=== PATIENT | male | born 1975 | race Caucasian/White ===

== ENCOUNTER 2017-06-16 11:33 | Emergency (ER) | payer SELFPAY ==
[~2017-06-16] VITALS: Ht 167.6 cm; Wt 160.0 kg
[~2017-06-16 11:33] MED LIST: LISI10TA3 PO; TRAM50 PO; Z.0.NO CURRENT MEDS
[2017-06-16 11:41] VITALS: BP 179/111; PULSE 76; RESP 16; TEMP 98.5; O2SAT 97
--- NOTE | 2017-06-16 11:53 | PD ---
HPI Chief Complaint: Edema Time Seen by Provider: 11:42 Travel History International Travel<30 days: No Contact w/Intl Traveler<30days: No Traveled to known affect area: No History of Present Illness HPI Patient transferred from the [place] ER to rule out left lower extremity DVT. Patient states he had have an ultrasound at different ER week ago was found to be negative at that time. Patient states symptoms have not changed and he went to the ER again today for second opinion. Patient states edema of his left lower extremity is worse with sitting and improves with walking. Patient having achy pain to his left calf that is worse to palpation. Not touching it makes pain better. Patient reports subjective fevers. Denies any chest pain, shortness of breath, numbness or tingling, known injury, or radiation of pain. PFSH Past Medical History Diminished Hearing: No Hypertension: Yes Inguinal Hernia: Yes Past Surgical History Appendectomy: Yes Tonsillectomy: Yes Other Surgery: Yes (BILAT HANDS) Social History Alcohol Use: No Tobacco Use: Yes (E-CIG) Substance Use: Yes (marijuana) Allergies-Medications (Allergen,Severity, Reaction): Coded Allergies: penicillin G (Unverified Allergy, Severe, CHILDHOOD, DOESNT REMEMBER, ) Reported Meds & Prescriptions Reported Meds & Active Scripts Active Bactrim DS (Sulfamethoxazole-Trimethoprim) 800-160 Mg Tab 1 Tab PO BID Clindamycin (Clindamycin HCl) 150 Mg Cap 2 Cap PO Q6H 10 Days Reported Lisinopril 10 Mg Tab 10 Mg PO DAILY Review of Systems Except as stated in HPI: all other systems reviewed are Neg Physical Exam Narrative GENERAL: Well-developed, overly nourished, in no acute distress, and non-ill appearing. SKIN: Febrile, erythematous, and tender area cellulitis noted on the left lateral calf. There is no crepitus, induration, or fluctuation. HEAD: Atraumatic. Normocephalic. EYES: Pupils equal and round. EOMI. No scleral icterus. No injection or drainage. ENT: No nasal bleeding or discharge. Mucous membranes pink and moist. NECK: Trachea midline. Supple. No nuclear rigidity. CARDIOVASCULAR: Dorsal pulses 2+, intact, and equal bilaterally. Capillary refill less than 2 seconds. RESPIRATORY: No accessory muscle use. No respiratory distress. MUSCULOSKELETAL: No obvious deformities. No clubbing. No cyanosis. 1+ edema left lower extremity. Full range of motion. NEUROLOGICAL: Awake and alert. No obvious cranial nerve deficits. Motor grossly within normal limits. Normal speech. PSYCHIATRIC: Appropriate mood and affect; insight and judgment normal. Data Data Last Documented VS Vital Signs Date Time Temp Pulse Resp B/P (MAP) Pulse Ox O2 Delivery O2 Flow Rate FiO2 06/16/17 11:46 72 18 97 Room Air 06/16/17 11:41 98.5 179/111 (133) Orders Orders Us Leg Venous Doppler (06/16/17 11:46) Ed Discharge Order (06/16/17 12:31) [facility] Medical Decision Making Medical Screen Exam Complete: Yes Emergency Medical Condition: Yes Medical Record Reviewed: Yes Interpretation(s) Ultrasound left lower extremity read by the radiologist shows: 1. No evidence of deep venous thrombosis. 2. Multiple mildly prominent lymph nodes in the groin region. Differential Diagnosis Cellulitis, DVT, abscess, folliculitis, other Narrative Course The patient has cellulitis. There is no evidence of necrotizing fasciitis at this time. There is no evidence of abscess. There is no evidence of local joint space involvement. There is no evidence of deep venous thrombosis. The patient will be discharged on antibiotics. The patient was given signs and symptoms warnings for worsening infection, such as spreading of redness, increasing pain , and/or swelling, associated heat, or fever and instructed to return immediately if these signs or symptoms worsen. The patient is to follow up with physician in 2 days for recheck or return here in 2 days for recheck if unable to establish outpatient follow up. Sooner if worsens or as needed. The patient agrees with plan. The patient has a prior history of hypertension and states has been taking their antihypertensive medications, but reports remains not well controlled. The patient has no symptoms as well. The patient denied headache, changes in vision, nausea, vomiting, dizziness, weakness or loss of sensation. The patient denied and chest, back or abdominal pain. The patient also denied any shortness of breath, dyspnea on exertion, orthopnea or PND. The patients blood pressures at discharge were at an acceptable level. I discussed with the patient that the standard of care is to not adjust antihypertensive medications at this time and for them to follow up with a primary care physician for continued outpatient evaluation and potential adjustment of blood pressure medication at that time. Return warnings were given to the patient and the patient agreed with plan of care. Patient in no obvious distress upon re-evaluation. All pertinent Radiology result(s) discussed with patient. Discussed patient with Dr. Russell prior to discharge, who is in agreement with plan of care and disposition. Patient was asked if they wanted to speak to my attending, which the patient did not wish to do at this time. Any questions/concerns in reference to patient diagnosis/condition discussed and clarified prior to patient's discharge. Reinforced sheer importance of close follow up with patient's primary physician or primary care clinic. Instructed patient to return to ED immediately, if symptoms return/worsen. Patient showed understanding of above instructions. Further instructions and recommendations were detailed in discharge paperwork. Patient left without difficulty out of ED at discharge. Diagnosis Primary Impression: Left leg cellulitis Referrals: [facility] Patient Instructions: Cellulitis (ED), Chronic Hypertension (ED), General Instructions Additional Instructions: Follow-up with your primary care physician or return to the ER in 2 days for recheck of cellulitis. Follow-up with primary care doctor soon as possible for reevaluation and adjustment of blood pressure medication. Follow-up with the primary care doctor for further evaluation from the prominent lymph nodes noted on ultrasound today. Take all medication as prescribed. Return to the emergency department if symptoms get worse. Med/Other Pt SpecificInfo: Prescription(s) given Scripts Sulfamethoxazole-Trimethoprim (Bactrim DS) 800-160 Mg Tab 1 TAB PO BID for Infection, #20 TAB 0 Refills Prov: Jair Russell MD 06/16/17 Clindamycin (Clindamycin) 150 Mg Cap 2 CAP PO Q6H for Infection for 10 Days, #80 CAP 0 Refills Prov: Jair Russell MD 06/16/17 Disposition: 01 DISCHARGE HOME Condition: Stable Surjit Parry Jun 16, 2017 11:53
--- NOTE | 2017-06-16 12:17 | RADRPT ---
EXAM DATE/TIME: 06/16/2017 11:51 [facility] COMPARISON: No previous studies available for comparison. INDICATIONS : Left leg swelling. MEDICAL HISTORY : Hypertension. Hernia. SURGICAL HISTORY : Tonsillectomy. Appendectomy. Bilateral hand surgery. ENCOUNTER: Initial ACUITY: 1 week PAIN SCORE: 4/10 LOCATION: Left leg. TECHNIQUE: Venous ultrasound of the leg was performed from the inguinal ligament to the proximal calf. Real-tiffany e, color Doppler and spectral tracing, compression and augmentation techniques were used. FINDINGS: There is normal compressibility of the deep venous system from the inguinal region to the proximal ca lf. No echogenic clot is seen in the lumen of the common femoral, femoral, popliteal, and posterior tibial veins. There is a normal response of the venous system to proximal and distal augmentation an d respiration. There are multiple prominent lymph nodes in the groin region measuring up to 3.9 cm i n greatest diameter. CONCLUSION: 1. No evidence of deep venous thrombosis. 2. Multiple mildly prominent lymph nodes in the groin region. Rhys Montez MD on June 16, 2017 at 12:15 Board Certified Radiologist. This report was verified electronically.
[2017-06-16] MEDS ORDERED: BACT800T5 PO ×2 (12:26)
[2017-06-16] MEDS ORDERED: CLIN1CAP5 PO ×2 (12:26)
== END 2017-06-16 15:55 | disposition home or self-care (01) ==
LOC: NEPE 11:33 → NEDAMB 15:55
DX: L03.116 Cellulitis of left lower limb (principal); I10 Essential (primary) hypertension; F17.290 Nicotine dependence, other tobacco product, uncomplicated; Z88.0 Allergy status to penicillin; Z79.899 Other long term (current) drug therapy
CPT/HCPCS: 80053; 85025; 85379; 87040; 93971; 96365; 99284